=== PATIENT | male | born 1960 | race Caucasian/White ===

== ENCOUNTER 2023-11-01 12:23 | Outpatient (CLI) | payer BC ==
[2023-11-01] MEDS ORDERED: Magnevist 469MG/ML 20 ML VIAL ONE (12:38)
== END 2023-11-01 12:24 | disposition home or self-care (01) ==
LOC: CSHRAD 12:23
PROVIDERS: ATTEND Urology
DX: C61 Malignant neoplasm of prostate (principal); R59.0 Localized enlarged lymph nodes
CPT/HCPCS: 72197; A9579